=== PATIENT | male | born 1940 | race Caucasian/White ===

== ENCOUNTER → 2017-12-12 07:08 | Outpatient (CLI) | payer MEDICARE, OTHER, SELFPAY ==
[2017-12-12 10:40] LABS: AST(SGOT) 21 U/L (15-37); Alanine Aminotransfer ALT/SGPT 28 U/L (16-61); Albumin, Serum 3.7 g/dL (3.2-5.0); Alkaline Phosphatase 63 U/L (45-117); Bilirubin, Direct 0.19 mg/dL (0.00-0.30); Cholesterol 146 mg/dL (200); Globulin 3.7 g/dL (2.2-4.2); High Density Lipoprotein 40 mg/dL; Protein, Total 7.4 g/dL (6.4-8.2); Triglycerides 76 mg/dL; Very Low Density Lipoprotein 15 mg/dL (5-40)
== END ==
PROVIDERS: Internal Medicine Cardiovascular Disease; Family Provider Family Medicine; PCP Family Medicine; Visit Provider Family Medicine
DX: E78.00 Pure hypercholesterolemia, unspecified (principal); E78.5 Hyperlipidemia, unspecified; Z79.899 Other long term (current) drug therapy
CPT/HCPCS: 36415; 80061; 80076

== ENCOUNTER → 2018-07-19 07:02 | Outpatient (CLI) | payer MEDICARE, OTHER, SELFPAY ==
[2018-07-19 10:29] LABS: Color, Urine Yellow (Yellow); Glucose, Dipstick Normal (Normal); Ketone-Dipstick Negative (Negative); Leukocyte Esterase-Dipstick Negative /ul (Negative); Nitrite-Dipstick Negative (Negative); Occult Blood-Urine Negative /ul (Negative); Protein-Dipstick Negative (Negative); Urine Bilirubin Dipstick Negative (Negative); Urine Clarity Clear (Clear); Urine Urobilinogen Normal (Normal)
[2018-07-19 10:42] LABS: Absolute Lymphocyte Count 1.73 X10^3/ul (0.83-4.51); Absolute Neutrophil Count 4.5 X10^3/uL (2.0-7.7); Basophil# 0.03 X10^3/uL; Basophil% 0.4 % (0-1); Eosinophil# 0.22 X10^3/uL; Hematocrit 42.8 % (40-54); Hemoglobin 14.5 g/dl (13.0-16.5); Lymphocyte # 1.73 X10^3/ul (4.0); Lymphocyte % 23.8 % (19-41); Mean Corp Hgb Conc 33.9 g/gl (32-36); Mean Corpuscular Hgb 29.6 pg (27.0-32.0); Mean Corpuscular Volume 87.3 fL (80-94); Mean Platelet Vol. 10.1 fl (6.2-12.0); Monocyte# 0.75 X10^3/uL; Monocyte% 10.3 % (0-10); Neutrophil # 4.54 X10^3/uL (2.7-7.7); Neutrophil % 62.4 % (47-70); Platelet Count 147 K/mm3 (150-450); RBC Distribution Width CV 13.4 % (11.6-14.6); RBC Distribution Width SD 42.7 fl (35.1-43.9); White Blood Count 7.3 K/mm3 (4.4-11.0)
[2018-07-19 10:49] LABS: POSITIVE COUNT NO; POSITIVE DIFFERENTIAL NO; POSITIVE MORPHOLOGY NO
[2018-07-19 10:53] LABS: BUN 16 mg/dL (7-18); Creatinine, Serum 0.77 mg/dL (0.70-1.30); Glucose 98 mg/dL (74-106)
[2018-07-19 10:54] LABS: AST(SGOT) 21 U/L (15-37); Alanine Aminotransfer ALT/SGPT 38 U/L (16-61); Albumin, Serum 3.7 g/dL (3.2-5.0); Alkaline Phosphatase 68 U/L (45-117); Anion Gap 6 (5-15); BUN/Creat Ratio 20.8 RATIO (10-20); Bilirubin, Direct 0.19 mg/dL (0.00-0.30); Calcium,Total 8.9 mg/dL (8.5-10.1); Chloride 106 mmol/L (98-107); Cholesterol 167 mg/dL (200); EST Glomerular Filtration Rate 104 mL/min (>60); Est Glom Filt Rate - Afr Amer 126 mL/min (>60); Globulin 3.6 g/dL (2.2-4.2); High Density Lipoprotein 43 mg/dL; PSA,Total - Annual Screen 3.08 ng/mL (0.00-4.00); Potassium 3.5 mmol/L (3.5-5.1); Protein, Total 7.3 g/dL (6.4-8.2); Sodium Level 141 mmol/L (136-145); Triglycerides 94 mg/dL; Very Low Density Lipoprotein 19 mg/dL (5-40)
== END ==
PROVIDERS: Nurse Practitioner Family; Family Provider Family Medicine; PCP Family Medicine; Referring Provider Family Medicine; Visit Provider Family Medicine
DX: Z00.00 Encounter for general adult medical examination without abnormal findings (principal); E78.5 Hyperlipidemia, unspecified; I10 Essential (primary) hypertension; Z12.5 Encounter for screening for malignant neoplasm of prostate; N40.0 Benign prostatic hyperplasia without lower urinary tract symptoms
CPT/HCPCS: 80053; 80061; 81002; 82248; 84153; 85025; G0103

== ENCOUNTER → 2018-12-24 | Outpatient (CLI) | payer MEDICARE, OTHER, SELFPAY ==
[2018-12-17 14:33] VITALS: BMI 25.1
[2018-12-24 08:41] LABS: AST(SGOT) 25 U/L (15-37); Alanine Aminotransfer ALT/SGPT 34 U/L (16-61); Albumin, Serum 3.5 g/dL (3.2-5.0); Alkaline Phosphatase 60 U/L (45-117); Bilirubin, Direct 0.24 mg/dL (0.00-0.30); Cholesterol 143 mg/dL (200); Globulin 3.3 g/dL (2.2-4.2); High Density Lipoprotein 44 mg/dL; Protein, Total 6.8 g/dL (6.4-8.2); Triglycerides 61 mg/dL; Very Low Density Lipoprotein 12 mg/dL (5-40)
== END | disposition home or self-care (01) ==
LOC: LAB 07:07
PROVIDERS: Family Provider Family Medicine; PCP Family Medicine; Referring Provider Internal Medicine Cardiovascular Disease; Visit Provider Internal Medicine Cardiovascular Disease
DX: E78.5 Hyperlipidemia, unspecified (principal)
CPT/HCPCS: 36415; 80061; 80076

== ENCOUNTER → 2019-01-04 | Outpatient (CLI) | payer MEDICARE, OTHER, SELFPAY ==
[2018-12-17 14:33] VITALS: BMI 25.1
--- NOTE | 2019-01-04 13:03 | STEWCON_ITS ---
Reason For Study: Chest Pain; HTN Stress Results Protocol: José Antonio Protocol Maximum Predicted HR: 143 bpm Target HR: 122 bpm % Maximum Predicted HR: 95 % DurationHeart Rate Stage (mm:ss) (bpm) BP Comment Baseline 58 158/90No Chest Pain; Diluted Definity 3.5 ML Given José Antonio Protocol Stage I 3:00 100 170/88No Chest Pain José Antonio Protocol Stage II 3:00 107 188/84No Chest Pain José Antonio Protocol Stage III 3:00 120 190/80No Chest Pain; Mild Dyspnea José Antonio Protocol Stage IV 1:01 136 / No Chest Pain; Moderate Dyspnea Recovery 70 160/90No Chest Pain Stress Duration: 10:01 mm:ss Maximum Stress HR: 136 bpm METS: 13 Baseline Echocardiogram Findings The estimated ejection fraction is 65 %. Stress Echo Wall motion Data Resting WM Intermediate WM Stress WM Resting Wall Motion Wall Motion Stress No regional wall motion No regional wall motion abnormalities noted. abnormalities noted. EKG Data The baseline ECG displays normal sinus rhythm. The patient exercised according to the regular José Antonio protocol for a total duration of 10:01. The maximum heart rate attained was 137 beats per minute. This was 95% of maximum predicted heart rate. The patient exercised into stage 4 of the José Antonio protocol. During stress, there were no ST or T wave changes noted to suggest ischemia. No clinical angina was noted. Interpretation Summary The estimated ejection fraction is 65 %. Normal, adequate, treadmill echocardiogram. Negative for ischemia by EKG and echocardiographic criteria. No anginal symptoms noted. Rare PVCs noted. Hypertensive blood pressure response to exercise. Average exercise capacity for age. Decreased sensitivity due to poor echo windows requiring Definity agent. Test terminated due to dyspnea. Final LVEF is 75%. No complications. The study was technically difficult. Contrast injection was performed. Ordering Physician: Heriberto Washington Referring Physician: Barak Nichols Performed By: Alina Hodge, KOREYCS, RVT
== END | disposition home or self-care (01) ==
LOC: CVS 13:02
PROVIDERS: Family Provider Family Medicine; PCP Family Medicine; Referring Provider Internal Medicine Cardiovascular Disease; Visit Provider Internal Medicine Cardiovascular Disease
DX: R07.9 Chest pain, unspecified (principal); I10 Essential (primary) hypertension; E78.5 Hyperlipidemia, unspecified; I47.2 Ventricular tachycardia; I47.1 Supraventricular tachycardia
CPT/HCPCS: 93017; 93350; Q9957; A4216; C8928

== ENCOUNTER 2019-01-06 23:10 | Emergency (ER) | payer MEDICARE, OTHER, SELFPAY ==
[2019-01-06 23:11] VITALS: BP 216/104; PULSE 69; RESP 18; TEMP 36.2; O2SAT 98; BMI 24.6
[2019-01-06 23:20] VITALS: BP 194/86; PULSE 66; RESP 17; TEMP 36.7; O2SAT 96
--- NOTE | 2019-01-06 23:47 | ED.VISSUMM ---
- ER Visit Summary Date of Service: 01/06/19 Chief Complaint: High blood pressure History of Present Illness: The patient is a [address] Cummings and Dr. Nichols. He reports that he typically has a blood pressure of 140/80. States that approximately 3 to 4 weeks ago he stopped taking his isosorbide. His blood pressure became elevated following that. States that approximately 2 weeks ago he was placed on 3.125 mg of carvedilol twice daily. His last dose was at 6 PM. States that he is also on quinapril 20 mg twice daily and his last dose of this was at 6 PM. He is on 12.5 mg of hydrochlorothiazide. He has not missed this. Patient reports that he measured his blood pressure tonight and it was 190/90. He readily admits that he became anxious and repeated again and it was 200/100. He repeated a third time and it was 210/120. States that he became very anxious and this was in a 30-minute timeframe. He denies any other complaints. No chest pain shortness of breath. No headache, numbness, weakness, change in his vision, or other neurologic complaints. Physical Examination: Vitals: 97.2, 216/104, 69, 18, 98% on room air which is not hypoxic General: Well-nourished and well-developed. Head: Normocephalic atraumatic. Neck: Supple, no lymphadenopathy. No JVD. Nontender. Cardiovascular: Regular rate and rhythm. No murmurs. Respiratory: No respiratory distress. Clear to auscultation bilaterally. Abdominal: Soft, nontender, nondistended, normal bowel sounds. No guarding, rebound, or peritoneal signs. Back: Nontender. Extremities: Nontender, no edema. Skin: Normal color, no rash. Neurologic: Alert and oriented ?3. Cranial nerves II through XII are intact. Normal strength and sensation. Psych: Normal affect. Emergency Department Course and Treatment: I had a prolonged discussion with patient about the likelihood that anxiety is partially responsible for his increase in his blood pressure was each of these readings. As he has been sitting here and we are talking his blood pressure is 187/86. I did offer to do an EKG, blood work, and a CT. However, he is asymptomatic and I do not feel that these are necessarily required. Treatment Plan: The patient feels better after being reassured. He does not want any evaluation undertaken. He will be discharged with instructions to speak with Dr. Cummings tomorrow about his blood pressures and see if he wants to increase his dose of any of his antihypertensives. Return to the emergency department for any worsening symptoms. Disposition: To home in improved and stable condition. Impression: 1. Asymptomatic hypertension. This note was generated with [employer] dictation software. It may contain incorrect words, spelling, and punctuation that were not noted in review of the chart prior to signing ED Disposition - Plan for ED Patient: Disposition: Home or Assisted Living Instructions: ED HTN Established Referrals: Heriberto Cummings MD [STAFF PHYSICIAN] - Barak Nichols MD [Primary Care Provider] - Keep Oscar appointment Additional Instructions: Call Dr. cummings tomorrow and talk with him about your blood pressures and see if he wants to adjust your medications.
[2019-01-06 23:52] VITALS: BP 179/89; PULSE 85; RESP 14; O2SAT 98
== END 2019-01-06 23:53 | disposition home or self-care (01) ==
LOC: ED 23:51
PROVIDERS: Emergency Provider Emergency Medicine; Family Provider Family Medicine; PCP Family Medicine
DX: I10 Essential (primary) hypertension (principal); E78.00 Pure hypercholesterolemia, unspecified; Z79.82 Long term (current) use of aspirin; Z79.899 Other long term (current) drug therapy
CPT/HCPCS: 99282

== ENCOUNTER → 2019-07-22 06:53 | Outpatient (CLI) | payer MEDICARE, OTHER, SELFPAY ==
[2019-07-01 14:27] VITALS: BMI 23.0
[2019-07-22 07:34] LABS: Color, Urine Yellow (Yellow); Glucose, Dipstick Normal (Normal); Ketone-Dipstick Negative (Negative); Leukocyte Esterase-Dipstick Negative /ul (Negative); Nitrite-Dipstick Negative (Negative); Occult Blood-Urine Negative /ul (Negative); Protein-Dipstick Negative (Negative); Specific Gravity, Urine 1.015 (1.002-1.030); Urine Bilirubin Dipstick Negative (Negative); Urine Clarity Clear (Clear); Urine Urobilinogen Normal (Normal)
[2019-07-22 07:37] LABS: Absolute Lymphocyte Count 1.36 X10^3/uL (0.83-4.51); Absolute Neutrophil Count 3.8 X10^3/uL (2.0-7.7); Basophil# 0.03 X10^3/uL; Basophil% 0.5 % (0-1); Eosinophil# 0.22 X10^3/uL; Eosinophils% 3.6 % (0-5); Hematocrit 41.1 % (40-54); Hemoglobin 13.9 g/dL (13.0-16.5); Lymphocyte # 1.36 X10^3/ul (4.0); Lymphocyte % 22.2 % (19-41); Mean Corp Hgb Conc 33.8 g/dL (32-36); Mean Corpuscular Hgb 30.2 pg (27.0-32.0); Mean Corpuscular Volume 89.2 fL (80-94); Mean Platelet Vol. 9.8 fl (6.2-12.0); Monocyte# 0.71 X10^3/uL; Monocyte% 11.6 % (0-10); NRBC Flagged by Analyzer 0 % (0-5); Neutrophil % 61.9 % (47-70); Platelet Count 141 K/mm3 (150-450); RBC Distribution Width SD 42.5 fl (35.1-43.9); Red Blood Count 4.61 M/mm3 (4.6-6.2); White Blood Count 6.1 K/mm3 (4.4-11.0)
[2019-07-22 08:09] LABS: ALB/GLOB Ratio 1.2 RATIO (0.9-2.4); AST(SGOT) 19 U/L (15-37); Alanine Aminotransfer ALT/SGPT 31 U/L (16-61); Albumin, Serum 3.7 g/dL (3.2-5.0); Alkaline Phosphatase 59 U/L (45-117); Anion Gap 3 (5-15); BUN 17 mg/dL (7-18); BUN/Creat Ratio 20.7 RATIO (10-20); Bilirubin, Direct 0.21 mg/dL (0.00-0.30); Calcium,Total 8.8 mg/dL (8.5-10.1); Chloride 106 mmol/L (98-107); Cholesterol 161 mg/dL (200); Creatinine, Serum 0.82 mg/dL (0.70-1.30); EST Glomerular Filtration Rate 96 mL/min (>60); Est Glom Filt Rate - Afr Amer 116 mL/min (>60); Globulin 3.2 g/dL (2.2-4.2); Glucose 102 mg/dL (74-106); High Density Lipoprotein 43 mg/dL; PSA,Total - Annual Screen 2.92 ng/mL (0.00-4.00); Potassium 3.7 mmol/L (3.5-5.1); Protein, Total 6.9 g/dL (6.4-8.2); Sodium Level 141 mmol/L (136-145); Triglycerides 85 mg/dL; Very Low Density Lipoprotein 17 mg/dL (5-40)
== END ==
PROVIDERS: Family Provider Family Medicine; PCP Family Medicine; Referring Provider Internal Medicine Cardiovascular Disease; Visit Provider Internal Medicine Cardiovascular Disease
DX: Z00.00 Encounter for general adult medical examination without abnormal findings (principal); E78.5 Hyperlipidemia, unspecified; I10 Essential (primary) hypertension; Z12.5 Encounter for screening for malignant neoplasm of prostate
CPT/HCPCS: 80053; 80061; 81002; 82248; 84153; 85025; G0103

== ENCOUNTER → 2020-04-15 07:46 | Outpatient (CLI) | payer MEDICARE, OTHER, SELFPAY ==
[2020-01-23 11:24] VITALS: BMI 23.9
[2020-04-15 10:41] LABS: AST(SGOT) 18 U/L (15-37); Alanine Aminotransfer ALT/SGPT 26 U/L (16-61); Albumin, Serum 3.6 g/dL (3.2-5.0); Alkaline Phosphatase 61 U/L (45-117); Bilirubin, Direct 0.19 mg/dL (0.00-0.30); Cholesterol 190 mg/dL (200); Globulin 3.4 g/dL (2.2-4.2); High Density Lipoprotein 43 mg/dL; Triglycerides 83 mg/dL; Very Low Density Lipoprotein 17 mg/dL (5-40)
== END ==
PROVIDERS: PCP Family Medicine; Referring Provider Family Medicine; Visit Provider Family Medicine
DX: E78.5 Hyperlipidemia, unspecified (principal)
CPT/HCPCS: 36415; 80061; 80076

== ENCOUNTER → 2020-07-24 07:19 | Outpatient (CLI) | payer MEDICARE, OTHER, SELFPAY ==
[2020-07-20 14:01] VITALS: BMI 23.0
[2020-07-24 10:06] LABS: Absolute Lymphocyte Count 1.24 X10^3/uL (0.83-4.51); Absolute Neutrophil Count 3.1 X10^3/uL (2.0-7.7); Basophil# 0.02 X10^3/uL; Basophil% 0.4 % (0-1); Eosinophil# 0.15 X10^3/uL; Eosinophils% 2.9 % (0-5); Hematocrit 41.5 % (40-54); Hemoglobin 14.1 g/dL (13.0-16.5); Lymphocyte # 1.24 X10^3/ul (4.0); Lymphocyte % 24.3 % (19-41); Mean Corpuscular Hgb 30.3 pg (27.0-32.0); Mean Corpuscular Volume 89.2 fL (80-94); Mean Platelet Vol. 10.5 fl (6.2-12.0); Monocyte# 0.56 X10^3/uL; NRBC Flagged by Analyzer 0 % (0-5); Neutrophil # 3.12 X10^3/uL (2.7-7.7); Platelet Count 148 K/mm3 (150-450); RBC Distribution Width CV 13.2 % (11.6-14.6); RBC Distribution Width SD 42.7 fl (35.1-43.9); Red Blood Count 4.65 M/mm3 (4.6-6.2); White Blood Count 5.1 K/mm3 (4.4-11.0)
[2020-07-24 10:54] LABS: ALB/GLOB Ratio 1.1 RATIO (0.9-2.4); AST(SGOT) 17 U/L (15-37); Alanine Aminotransfer ALT/SGPT 25 U/L (16-61); Albumin, Serum 3.6 g/dL (3.2-5.0); Alkaline Phosphatase 60 U/L (45-117); Anion Gap 6 (5-15); BUN 20 mg/dL (7-18); BUN/Creat Ratio 27.1 RATIO (10-20); Chloride 108 mmol/L (98-107); Cholesterol 176 mg/dL (200); Creatinine, Serum 0.74 mg/dL (0.70-1.30); EST Glomerular Filtration Rate 109 mL/min (>60); Est Glom Filt Rate - Afr Amer 132 mL/min (>60); Globulin 3.2 g/dL (2.2-4.2); Glucose 87 mg/dL (74-106); High Density Lipoprotein 47 mg/dL; PSA,Total - Annual Screen 3.14 ng/mL (0.00-4.00); Potassium 3.6 mmol/L (3.5-5.1); Protein, Total 6.8 g/dL (6.4-8.2); Sodium Level 143 mmol/L (136-145); Triglycerides 46 mg/dL; Very Low Density Lipoprotein 9 mg/dL (5-40)
== END ==
PROVIDERS: PCP Family Medicine; Referring Provider Family Medicine; Visit Provider Family Medicine
DX: Z00.00 Encounter for general adult medical examination without abnormal findings (principal); E78.5 Hyperlipidemia, unspecified; I10 Essential (primary) hypertension; Z12.5 Encounter for screening for malignant neoplasm of prostate
CPT/HCPCS: 36415; 80053; 80061; 84153; 85025; G0103

== ENCOUNTER → 2021-02-05 11:04 | Outpatient (CLI) | payer MEDICARE, SELFPAY ==
[2020-08-13 15:26] VITALS: BMI 23.1
[2021-02-05 12:49] LABS: ALB/GLOB Ratio 1.1 RATIO (0.9-2.4); AST(SGOT) 19 U/L (15-37); Alanine Aminotransfer ALT/SGPT 30 U/L (16-61); Albumin, Serum 3.6 g/dL (3.2-5.0); Alkaline Phosphatase 70 U/L (45-117); Anion Gap 5 (5-15); BUN 16 mg/dL (7-18); BUN/Creat Ratio 23.5 RATIO (10-20); Calcium,Total 8.8 mg/dL (8.5-10.1); Chloride 106 mmol/L (98-107); Creatinine, Serum 0.68 mg/dL (0.70-1.30); EST Glomerular Filtration Rate 119 mL/min (>60); Est Glom Filt Rate - Afr Amer 144 mL/min (>60); Globulin 3.2 g/dL (2.2-4.2); Glucose 89 mg/dL (74-106); Potassium 3.4 mmol/L (3.5-5.1); Protein, Total 6.8 g/dL (6.4-8.2); Sodium Level 142 mmol/L (136-145)
== END ==
PROVIDERS: PCP Family Medicine; Referring Provider Family Medicine; Visit Provider Family Medicine
DX: I10 Essential (primary) hypertension (principal); E78.5 Hyperlipidemia, unspecified
CPT/HCPCS: 36415; 80053

== ENCOUNTER → 2021-07-27 07:08 | Outpatient (CLI) | payer MEDICARE, SELFPAY ==
[2021-07-27 09:55] LABS: Absolute Lymphocyte Count 1.29 X10^3/uL (0.83-4.51); Absolute Neutrophil Count 4.2 X10^3/uL (2.0-7.7); Basophil# 0.04 X10^3/uL; Basophil% 0.6 % (0-1); Eosinophil# 0.19 X10^3/uL; Hematocrit 40.6 % (40-54); Hemoglobin 13.7 g/dL (13.0-16.5); Lymphocyte # 1.29 X10^3/ul (0.83-4.51); Lymphocyte % 20.3 % (19-41); Mean Corp Hgb Conc 33.7 g/dL (32-36); Mean Corpuscular Hgb 29.4 pg (27.0-32.0); Mean Corpuscular Volume 87.1 fL (80-94); Monocyte# 0.56 X10^3/uL; Monocyte% 8.8 % (0-10); NRBC Flagged by Analyzer 0 % (0-5); Neutrophil # 4.24 X10^3/uL (2.7-7.7); Platelet Count 161 K/mm3 (150-450); RBC Distribution Width CV 13.4 % (11.6-14.6); RBC Distribution Width SD 42.6 fl (35.1-43.9); Red Blood Count 4.66 M/mm3 (4.6-6.2); White Blood Count 6.3 K/mm3 (4.4-11.0)
[2021-07-27 10:29] LABS: ALB/GLOB Ratio 0.9 RATIO (0.9-2.4); AST(SGOT) 16 U/L (15-37); Alanine Aminotransfer ALT/SGPT 30 U/L (16-61); Albumin, Serum 3.3 g/dL (3.2-5.0); Alkaline Phosphatase 59 U/L (45-117); Anion Gap 8 (5-15); BUN 16 mg/dL (7-18); BUN/Creat Ratio 24.4 RATIO (10-20); Calcium,Total 8.8 mg/dL (8.5-10.1); Chloride 105 mmol/L (98-107); Cholesterol 169 mg/dL (200); Creatinine, Serum 0.66 mg/dL (0.70-1.30); EST Glomerular Filtration Rate 125 mL/min (>60); Est Glom Filt Rate - Afr Amer 151 mL/min (>60); Globulin 3.7 g/dL (2.2-4.2); Glucose 95 mg/dL (74-106); High Density Lipoprotein 41 mg/dL; PSA,Total - Annual Screen 3.74 ng/mL (0.00-4.00); Potassium 3.3 mmol/L (3.5-5.1); Sodium Level 143 mmol/L (136-145); Triglycerides 85 mg/dL; Very Low Density Lipoprotein 17 mg/dL (5-40)
== END ==
PROVIDERS: PCP Family Medicine; Referring Provider Family Medicine; Visit Provider Family Medicine
DX: Z00.00 Encounter for general adult medical examination without abnormal findings (principal); E78.5 Hyperlipidemia, unspecified; I10 Essential (primary) hypertension; Z12.5 Encounter for screening for malignant neoplasm of prostate
CPT/HCPCS: 36415; 80053; 80061; 84153; 85025; G0103

== ENCOUNTER → 2022-06-10 | Outpatient (CLI) | payer MEDICARE, SELFPAY | END | disposition home or self-care (01) | LOC: PSN 11:57 | PROVIDERS: PCP Family Medicine; Referring Provider Nurse Practitioner Gerontology; Visit Provider Nurse Practitioner Gerontology | DX: R00.2 Palpitations (principal); R55 Syncope and collapse | CPT/HCPCS: 93225; 93226 ==

== ENCOUNTER → 2022-08-09 | Outpatient (CLI) | payer MEDICARE, SELFPAY ==
[2022-08-09 14:52] LABS: Absolute Lymphocyte Count 1.65 X10^3/uL (0.83-4.51); Basophil# 0.04 X10^3/uL; Basophil% 0.5 % (0-1); Eosinophil# 0.21 X10^3/uL; Eosinophils% 2.8 % (0-5); Hematocrit 40.4 % (40-54); Hemoglobin 13.9 g/dL (13.0-16.5); Lymphocyte # 1.65 X10^3/ul (0.83-4.51); Lymphocyte % 21.7 % (19-41); Mean Corp Hgb Conc 34.4 g/dL (32-36); Mean Corpuscular Hgb 29.7 pg (27.0-32.0); Mean Corpuscular Volume 86.3 fL (80-94); Mean Platelet Vol. 10.2 fl (6.2-12.0); Monocyte# 0.72 X10^3/uL; Monocyte% 9.4 % (0-10); NRBC Flagged by Analyzer 0 % (0-5); Neutrophil # 4.97 X10^3/uL (2.7-7.7); Neutrophil % 65.2 % (47-70); Platelet Count 156 K/mm3 (150-450); RBC Distribution Width CV 12.9 % (11.6-14.6); RBC Distribution Width SD 40.1 fl (35.1-43.9); Red Blood Count 4.68 M/mm3 (4.6-6.2); White Blood Count 7.6 K/mm3 (4.4-11.0)
[2022-08-09 15:04] LABS: ALB/GLOB Ratio 1.2 RATIO (0.9-2.4); AST(SGOT) 21 U/L (15-37); Alanine Aminotransfer ALT/SGPT 37 U/L (16-61); Albumin, Serum 3.9 g/dL (3.2-5.0); Alkaline Phosphatase 55 U/L (45-117); Anion Gap 5 (5-15); BUN 17 mg/dL (7-18); BUN/Creat Ratio 20.9 RATIO (10-20); Calcium,Total 9.4 mg/dL (8.5-10.1); Chloride 106 mmol/L (98-107); Cholesterol 206 mg/dL (200); Creatinine, Serum 0.81 mg/dL (0.70-1.30); EST Glomerular Filtration Rate 97 mL/min (>60); Est Glom Filt Rate - Afr Amer 117 mL/min (>60); Globulin 3.3 g/dL (2.2-4.2); Glucose 118 mg/dL (74-106); High Density Lipoprotein 44 mg/dL; Potassium 3.7 mmol/L (3.5-5.1); Protein, Total 7.2 g/dL (6.4-8.2); Sodium Level 142 mmol/L (136-145); Triglycerides 146 mg/dL; Very Low Density Lipoprotein 29 mg/dL (5-40)
== END | disposition home or self-care (01) ==
LOC: BFHLAB 13:38
PROVIDERS: PCP Family Medicine; Visit Provider Family Medicine
DX: I10 Essential (primary) hypertension (principal)
CPT/HCPCS: 36415; 80053; 80061; 85025

== ENCOUNTER 2022-11-07 16:44 | Emergency (ER) | payer MEDICARE, SELFPAY ==
[2022-11-07 16:45] VITALS: BP 202/87; PULSE 66; RESP 18; TEMP 36.1; O2SAT 99; BMI 23.8
--- NOTE | 2022-11-07 19:09 | EDS_ITS ---
HPI History of Present Illness Chief Complaint: Laceration Narrative Narrative: 82-year-old male presenting with wound on the left middle finger. Patient states he was trying to do something to his lawnmower and make it to be able to hold more weight to the advertently pinched his finger and its been bleeding since then. Patient not on any blood thinners. He is try direct pressure. [facility] Medical History BPH (benign prostatic hyperplasia) Cataract (lens) fragments in eye following cataract surgery, right eye COVID-19 (~04/2021) Essential hypertension Frequent unifocal PVCs Hyperlipidemia Paroxysmal supraventricular tachycardia Paroxysmal ventricular tachycardia Home Medications aspirin 81 mg tablet,delayed release (Adult Aspirin Regimen) 81 mg PO QDAY 12/24/17 [History Last Taken Unknown] cranberry 500 mg capsule 500 mg PO BID 12/24/17 [History Last Taken Unknown] multivitamin 1 tab PO QDAY 12/24/17 [History Last Taken Unknown] cyanocobalamin (vitamin B-12) 1,000 mcg tablet (Vitamin B-12) 1,000 mcg PO QDAY 12/25/17 [History Last Taken Unknown] tamsulosin 0.4 mg capsule 0.4 mg PO DAILY 05/31/18 [History Last Taken Unknown] potassium chloride 10 mEq tablet,extended release 10 meq PO DAILY #90 tabs 06/17/20 [Rx Last Taken Unknown] carvedilol 6.25 mg tablet 6.25 mg PO BID #180 tabs 01/31/22 [Rx Last Taken Unknown] hydrochlorothiazide 25 mg tablet 25 mg PO DAILY #90 tabs 01/31/22 [Rx Last Taken Unknown] doxazosin 2 mg tablet (Cardura) 2 mg PO QHS #90 tabs 09/09/22 [Rx Last Taken Unknown] lisinopril 20 mg tablet 20 mg PO BID 09/09/22 [History Last Taken Unknown] Allergy/AdvReac Type Severity Reaction Status Date / Time hydralazine AdvReac Severe Peripheral Verified 11/07/22 16:45 Neuritis (numb and pain hands and feet) isosorbide AdvReac Severe Severe Verified 11/07/22 16:45 headache Family History Father CAD (coronary artery disease) Mother CAD (coronary artery disease) CABG CVA (cerebral vascular accident) Diabetes Surgical History History of appendectomy Social History Smoking Status: Never smoker how long ago did patient quit smokin years ago alcohol intake: never caffeine: Yes (1) Type: coffee ROS ROS ED Constitutional Constitutional ED: Denies chills, fever(s) or sweats Eyes Eyes: Denies blurry vision or change in vision ENT ENT ED: Denies ear pain or sore throat Cardiovascular Cardiovascular: Denies chest pain, palpitations or racing heartbeat Respiratory/Chest Respiratory/Chest: Denies cough, dyspnea or sputum Gastrointestinal Gastrointestinal: Denies abdominal pain, constipation, diarrhea, nausea or vomiting Genitourinary Genitourinary ED: Denies dysuria, hematuria or urinary frequency Musculoskeletal Musculoskeletal: Denies arthralgias, myalgias or neck pain Integumentary Reports other Details: Wound to left middle finger ; Denies abscess, Abrasions or rash Neurologic Neurologic: Denies headache(s), paresthesias or weakness Psychiatric Psychiatric: Denies anxiety, depression, suicidal ideation or suicidal thoughts Endocrine Endocrinology: Denies polydipsia or polyuria EXAM Physical Exam Const Vital Signs: 11/07/22 16:45 Temperature 97 F L Temperature Source Temporal Pulse Rate 66 Respiratory Rate 18 Blood Pressure 202/87 H Blood Pressure Mean 125 Pulse Ox 99 Oxygen Delivery Method Room Air Positive well nourished General Appearance ED: NAD HEENT normocephalic Eyes PERRL and EOMs intact bilaterally Resp normal respiratory effort Neuro oriented x3 and CN's II-XII intact bilaterally Sensorium / Orientation: alert Psych mental status grossly normal Skin Skin Narrative: Macerated wound to the lateral aspect of the left middle finger. No bony involvement. No tendon involvement. Oozing blood. MDM MDM MDM Narrative Medical decision making narrative: Patient avulsed the skin on the side of his left middle finger. Amenable for suturing. Patient is on any blood thinners. Compression dressing was placed on the patient's wound. We will monitor to make sure it does not rebleed. Counseled that he will likely need to keep this clean and dry and use pressure if it does rebleed. Pressure dressing rechecked at 7:55 PM. No current bleeding. Patient's tetanus is updated. He is counseled on wound care. Return precautions discussed. Impression: 1. Skin avulsion left middle finger Discharge Plan Triage Chief Complaint: Laceration ED Provider: Calixto Hunt Dx/Rx/DC Orders Prescriptions: No Action cyanocobalamin (vitamin B-12) [Vitamin B-12] 1,000 mcg tablet 1,000 mcg PO QDAY multivitamin tablet 1 tab PO QDAY cranberry 500 mg capsule 500 mg PO BID aspirin [Adult Aspirin Regimen] 81 mg tablet,delayed release (DR/EC) 81 mg PO QDAY lisinopril 20 mg tablet 20 mg PO BID doxazosin [Cardura] 2 mg tablet 2 mg PO QHS Qty: 90 3RF tamsulosin 0.4 mg capsule 0.4 mg PO DAILY Label Comments: urinary urgency potassium chloride 10 mEq tablet extended release 10 meq PO DAILY Qty: 90 3RF carvedilol 6.25 mg tablet 6.25 mg PO BID Qty: 180 3RF Rx Instructions: must administer with a meal/food hydrochlorothiazide 25 mg tablet 25 mg PO DAILY Qty: 90 3RF Primary Care Provider: Pete Ferreira Referrals: Pete Ferreira DO [Primary Care Provider] -
[2022-11-07] MEDS: Diphth,Pertuss(Acell),Tet Vac 0.5 ML Vial IM (20:05)
[2022-11-07 20:28] VITALS: BP 161/78; PULSE 79; RESP 16
== END 2022-11-07 20:29 | disposition home or self-care (01) ==
PROVIDERS: Emergency Provider Student in an Organized Health Care Education/Training Program; PCP Family Medicine; Visit Provider Student in an Organized Health Care Education/Training Program
DX: S61.203A Unspecified open wound of left middle finger without damage to nail, initial encounter (principal); I10 Essential (primary) hypertension; W28.XXXA Contact with powered lawn mower, initial encounter; Z79.82 Long term (current) use of aspirin; Z79.899 Other long term (current) drug therapy; N40.0 Benign prostatic hyperplasia without lower urinary tract symptoms; Z23 Encounter for immunization
CPT/HCPCS: 90471; 90715; 99282; A4216

== ENCOUNTER → 2023-09-12 | Outpatient (CLI) | payer MEDICARE, SELFPAY ==
[2023-09-12 12:15] LABS: Absolute Lymphocyte Count 1.12 X10^3/uL (0.83-4.51); Absolute Neutrophil Count 7.6 X10^3/uL (2.0-7.7); Basophil# 0.04 X10^3/uL; Basophil% 0.4 % (0-1); Eosinophil# 0.14 X10^3/uL; Eosinophils% 1.4 % (0-5); Hematocrit 39.3 % (40-54); Hemoglobin 13.1 g/dL (13.0-16.5); Lymphocyte # 1.12 X10^3/ul (0.83-4.51); Lymphocyte % 11.2 % (19-41); Mean Corp Hgb Conc 33.3 g/dL (32-36); Mean Corpuscular Hgb 29.4 pg (27.0-32.0); Mean Corpuscular Volume 88.3 fL (80-94); Mean Platelet Vol. 10.3 fl (6.2-12.0); Monocyte# 0.98 X10^3/uL; Monocyte% 9.8 % (0-10); NRBC Flagged by Analyzer 0 % (0-5); Neutrophil # 7.64 X10^3/uL (2.7-7.7); Neutrophil % 76.7 % (47-70); Platelet Count 150 K/mm3 (150-450); RBC Distribution Width CV 13.3 % (11.6-14.6); Red Blood Count 4.45 M/mm3 (4.6-6.2)
[2023-09-12 13:39] LABS: ALB/GLOB Ratio 1.1 RATIO (0.9-2.4); AST(SGOT) 16 U/L (15-37); Alanine Aminotransfer ALT/SGPT 29 U/L (16-61); Albumin, Serum 3.6 g/dL (3.2-5.0); Alkaline Phosphatase 57 U/L (45-117); Anion Gap 3 (5-15); BUN 14 mg/dL (7-18); BUN/Creat Ratio 20.9 RATIO (10-20); Calcium,Total 9.3 mg/dL (8.5-10.1); Chloride 106 mmol/L (98-107); Cholesterol 185 mg/dL (200); Creatinine, Serum 0.67 mg/dL (0.70-1.30); EST Glomerular Filtration Rate 121 mL/min (>60); Est Glom Filt Rate - Afr Amer 146 mL/min (>60); Globulin 3.3 g/dL (2.2-4.2); Glucose 100 mg/dL (74-106); High Density Lipoprotein 43 mg/dL; Potassium 3.9 mmol/L (3.5-5.1); Protein, Total 6.9 g/dL (6.4-8.2); Sodium Level 138 mmol/L (136-145); Triglycerides 120 mg/dL; Very Low Density Lipoprotein 24 mg/dL (5-40)
== END | disposition home or self-care (01) ==
LOC: BFHLAB 10:37
PROVIDERS: PCP Family Medicine; Visit Provider Family Medicine
DX: I10 Essential (primary) hypertension (principal); E78.5 Hyperlipidemia, unspecified
CPT/HCPCS: 36415; 80053; 80061; 85025

== ENCOUNTER → 2023-11-14 | Outpatient (CLI) | payer MEDICARE, SELFPAY | END | disposition home or self-care (01) | LOC: PSN 09:03 | PROVIDERS: PCP Family Medicine; Referring Provider Family Medicine; Visit Provider Family Medicine | DX: I48.91 Unspecified atrial fibrillation (principal) | CPT/HCPCS: 93225; 93226 ==

== ENCOUNTER → 2023-12-29 | Outpatient (CLI) | payer MEDICARE, SELFPAY ==
--- NOTE | 2023-12-29 06:44 | ECHOD_ITS ---
Reason For Study: Abnormal EKG Procedure This was a 2D Doppler, Color Flow transthoracic echocardiogram. Exam performed in department. Left Ventricle Normal LV size. The estimated ejection fraction is 65 %. Unable to assess diastolic dysfunction. No regional wall motion abnormalities noted. Right Ventricle Normal RV size. Normal systolic function. Atria The left atrium is mildly enlarged. Normal right atrium. No doppler evidence for ASD. Mitral Valve There is moderate mitral annular calcification. There is no mitral valve stenosis. No mitral valve insufficiency. Tricuspid Valve There is no tricuspid stenosis. Trivial tricuspid valve insufficiency. Pulmonary artery systolic pressure is 35 mmHg. Aortic Valve Trisinus/trileaflet aortic valve. Aortic sclerosis, no stenosis. There is no aortic stenosis. No aortic valve insufficiency. Pulmonic Valve There is no pulmonic valvular stenosis. No pulmonic valve insufficiency. Great Vessels Normal aortic root. Pericardium/Pleural No pericardial effusion. MMode/2D Measurements & Calculations LVIDd: 5.0 cm IVSd: 0.83 cm Ao root diam: 3.4 cm LVIDs: 3.2 cm LVPWd: 1.1 cm LA dimension: 4.1 cm RVDd: 4.1 cm FS: 35.8 % LAV(MOD-bp): 73.1 ml LA A4 area: 22.6 cm2 RA A4 area: 21.8 cm2 LAV(MOD-bp) Indexed: 39.1 ml/m2 LAV(MOD-sp2): 67.4 ml LAV(MOD-sp4): 67.7 ml TAPSE: 1.9 cm Time Measurements MV dec time: 0.30 sec Doppler Measurements & Calculations MV E max benoit: 57.3 cm/sec Lat Peak E' Benoit: 4.4 cm/sec Med Peak E' Benoit: 7.6 cm/sec MV A max benoit: 91.6 cm/sec E/E' lat: 13.1 E/E' med: 7.5 MV E/A: 0.63 MV V2 max: 103.0 cm/sec MV P1/2t max benoit: 75.5 cm/sec Ao V2 max: 127.7 cm/sec MV max P.2 mmHg MV P1/2t: 106.5 msec Ao max P.6 mmHg MV V2 mean: 46.7 cm/sec Ao V2 mean: 82.7 cm/sec MV mean P.1 mmHg MV dec slope: 207.7 cm/sec2 Ao mean P.2 mmHg MV V2 VTI: 30.0 cm MVA(P1/2t): 2.1 cm2 Ao V2 VTI: 26.6 cm AV (velocity ratio): 1.0 LV V1 max: 121.1 cm/sec MR max benoit: 497.9 cm/sec PA V2 max: 111.5 cm/sec LV V1 max P.9 mmHg MR max P.2 mmHg PA V2 mean: 77.6 cm/sec LV V1 mean P.6 mmHg LV V1 mean: 73.6 cm/sec LV V1 VTI: 27.9 cm TR max benoit: 266.7 cm/sec TR max P.5 mmHg ECHO/Echo Complete Interpretation Summary The estimated ejection fraction is 65 %. Unable to assess diastolic dysfunction. The left atrium is mildly enlarged. Ordering Physician: Adina Esquivel Referring Physician: Pete Ferreira Performed By: David Smart RCS
--- NOTE | 2024-01-02 10:50 | STRESSREP ---
Stress Test Report Date: 12/29/2023 Procedure: Exercise tolerance test/imaging study Indications: Paroxysmal atrial fibrillation Consent: Per the patient Procedure: The patient exercised on a José Antonio protocol for 9 minutes achieving a peak heart rate of 146 bpm (105% predicted maximal heart rate) with a peak blood pressure 190/72 mmHg and a peak MET capacity of 10.1 METs. The baseline ECG demonstrated normal sinus rhythm. The peak exercise ECG demonstrated sinus tachycardia with no significant ischemic changes. EKG during recovery revealed no significant ischemic changes [There were no significant cardiac dysrhythmias pretest, during exercise, or recovery]. The functional capacity was considered excellent for age. There was [no complaint of chest discomfort during exercise or recovery]. The examination was discontinued secondary to achieving target heart rate. Impression: 1. Technically adequate (percent predicted maximal heart rate greater than 85%) exercise tolerance test 2. Stress test is negative for exercise-induced EKG changes of ischemia 3. The test test is negative for exercise-induced chest pain 4. Functional capacity is excellent for age 5. Nuclear images pending Myocardial perfusion imaging study: Technique: The patient was injected with 11.8 mCi of technetium 99m Cardiolite and subsequently rest SPECT Cardiolite nuclear imaging was obtained in the horizontal long, vertical long, and short axis views. The patient exercised on a José Antonio protocol. Please see above for details. The patient was injected with 33.3 mCi of technetium 99m Cardiolite and subsequently stress SPECT Cardiolite nuclear imaging was obtained in the horizontal long, vertical long, and short axis views. A gated Cardiolite study at peak stress was obtained. Interpretation: Rest and stress SPECT Cardiolite nuclear imaging status post realignment, normalization, and attenuation correction, demonstrates no evidence of significant ischemia or infarction. The gated Cardiolite study demonstrates no significant regional wall motion abnormalities. The reported LVEF is greater than 70%. Impression: 1. There is no evidence of significant ischemia or infarction. 2. The gated Cardiolite study reports an LVEF of greater than 70%. This note was generated with [employer] software. It may contain incorrect words, spelling, and punctuation that were not noted in checking the note before signing.
== END | disposition home or self-care (01) ==
LOC: CVS 06:43
PROVIDERS: PCP Family Medicine; Referring Provider Physician Assistant Medical; Visit Provider Physician Assistant Medical
DX: I47.10 Supraventricular tachycardia, unspecified (principal); I48.0 Paroxysmal atrial fibrillation; I10 Essential (primary) hypertension; R94.31 Abnormal electrocardiogram [ECG] [EKG]
CPT/HCPCS: 78452; 93017; 93306; A9500; A4216

== ENCOUNTER → 2024-07-01 | Outpatient (CLI) | payer MEDICARE, SELFPAY | END | disposition home or self-care (01) | LOC: PSN 08:33 | PROVIDERS: PCP Family Medicine; Referring Provider Internal Medicine Cardiovascular Disease; Visit Provider Internal Medicine Cardiovascular Disease | DX: I48.0 Paroxysmal atrial fibrillation (principal) | CPT/HCPCS: 93225; 93226 ==

== ENCOUNTER → 2024-10-04 | Outpatient (CLI) | payer MEDICARE, SELFPAY ==
[2024-10-04 15:37] LABS: Absolute Lymphocyte Count 1.47 X10^3/uL (0.83-4.51); Absolute Neutrophil Count 4.2 X10^3/uL (2.0-7.7); Basophil# 0.04 X10^3/uL; Basophil% 0.6 % (0-1); Eosinophil# 0.21 X10^3/uL; Eosinophils% 3.2 % (0-5); Hematocrit 38.7 % (40-54); Hemoglobin 13.3 g/dL (13.0-16.5); Lymphocyte # 1.47 X10^3/ul (0.83-4.51); Lymphocyte % 22.3 % (19-41); Mean Corp Hgb Conc 34.4 g/dL (32-36); Mean Corpuscular Volume 87.4 fL (80-94); Mean Platelet Vol. 10.2 fl (6.2-12.0); Monocyte# 0.66 X10^3/uL; NRBC Flagged by Analyzer 0 % (0-5); Neutrophil # 4.18 X10^3/uL (2.7-7.7); Neutrophil % 63.6 % (47-70); Platelet Count 175 K/mm3 (150-450); RBC Distribution Width CV 13.2 % (11.6-14.6); RBC Distribution Width SD 42.1 fl (35.1-43.9); Red Blood Count 4.43 M/mm3 (4.6-6.2); White Blood Count 6.6 K/mm3 (4.4-11.0)
[2024-10-04 15:54] LABS: ALB/GLOB Ratio 1.3 RATIO (0.9-2.4); AST(SGOT) 25 U/L (<=37); Alanine Aminotransfer ALT/SGPT 27 U/L (<=46); Albumin, Serum 4.1 g/dL (3.4-4.8); Alkaline Phosphatase 68 U/L (40-129); Anion Gap 11 (5-15); BUN 18 mg/dL (4-19); Calcium 9.7 mg/dL (7.6-11.0); Carbon Dioxide 26.2 mmol/L (22.0-29.0); Chloride 104 mmol/L (96-108); EST Glomerular Filtration Rate 92 (>60); Glucose 109 mg/dL (70-99); Potassium 3.7 mmol/L (3.3-5.1); Protein, Total 7.1 g/dL (5.9-8.4); Sodium Level 141 mmol/L (133-145); Total Bilirubin 0.41 mg/dL (0.00-1.30)
== END | disposition home or self-care (01) ==
LOC: BFHLAB 13:31
PROVIDERS: PCP Family Medicine; Visit Provider Family Medicine
DX: I10 Essential (primary) hypertension (principal)
CPT/HCPCS: 36415; 80053; 85025

== ENCOUNTER 2024-10-24 10:56 | Day surgery (SDC) | payer MEDICARE, SELFPAY ==
--- NOTE | 2024-10-11 13:35 | PAT.ANESEVAL ---
Pre-Assessment Diagnosis/Proposed Procedure Planned Operative Procedure(s): LAP ROBOTIC LEFT INGUINAL HERNIA REPAIR WITH MESH,UMBILICAL HERNIA REPAIR Anesthesia History Anesthesia History - personnel coordinator: Anesthesia History - personnel coordinator Hx Hospitalization No 10/11/24 13:09 Any Problems With Anesthesia No 10/11/24 13:09 Cholinesterase deficiency No 10/11/24 13:09 You/Your Family Experience No 10/11/24 13:09 fever (hyperthermia) with Relationship Recent Exposure to Contagious No 04/01/14 17:19 Disease Does patient have nerve No 10/11/24 13:09 stimulator Patient instructed to have device shut off --Does patient have Pacemaker or ICD? When Was Last Pacemaker Check QUESTION #4 FULL TEXT: You/Your Family Experience fever (hyperthermia) with Anesthesia Last Oral Intake Last Oral intake: Last Oral Intake NPO since Meds taken in AM with sips of water? Meds patient instructed to take am of surgery PONV PONV - personnel coordinator: PONV - personnel coordinator Female No 10/11/24 13:09 HX of Motion Sickness No 10/11/24 13:09 HX of N/V After Surgery No 10/11/24 13:09 Non-Smoker Yes 10/11/24 13:09 Duration of Surgery greater Yes 10/11/24 13:09 than 60 minutes Number of Risk Factors 2 10/11/24 13:09 PONV Score Moderate Risk 10/11/24 13:09 Height & Weight Height & Weight: Anesthesia: Height & Weight Height 5 ft 9 in 10/09/24 08:45 Respiratory Assessment Respiratory Assessment - personnel coordinator: Respiratory Tract Infection Hx - personnel coordinator Hx Respiratory Tract Infection No 10/11/24 13:09 STOP Sleep Apnea STOP Sleep Apnea - personnel coordinator: STOP Sleep Apnea - personnel coordinator Hx Hypertension Yes: CONTROLLED WITH MED 10/11/24 13:09 Hx Sleep Apnea No 10/11/24 13:09 CPAP No 04/01/14 17:19 BIPAP No 04/01/14 17:19 Do you snore loudly (louder No 10/11/24 13:09 than talking or can be heard Do you often feel tired/ No 10/11/24 13:09 fatigued/ sleepy during daytime? Has anyone observed you stop No 10/11/24 13:09 breathing during sleep? STOP Results Negative 10/11/24 13:09 QUESTION #5 FULL TEXT : Do you snore loudly (louder than talking or can be heard through closed doors)? 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 Specify any problems Hx of Preganancy in last 3 N/A 10/11/24 13:09 Months Nurse Filling Out Transfusion DSCHRIBER 10/11/24 13:09 & Questions: Date: 10/11/24 10/11/24 13:09 Time: 13:11 10/11/24 13:09 Patient unable to answer at this time (ie. confused, unrespo /Reproduction History /Reproductive History - personnel coordinator: /Reproductive Hx- personnel coordinator Hx Now No 10/11/24 13:09 Gestational Age (in weeks): EDC: Hx Hx Para Hx Section SAB No 10/11/24 13:09 [facility] Medical History (Updated 10/11/24 @ 13:18 by Steff Antoine) Wears hearing aid Wears glasses Wears dentures Arthritis High cholesterol Injury of back Migraine headache Loss of consciousness Former smoker Leg cramps History of Holter monitoring History of echocardiogram History of stress test Cardiology follow-up encounter Left inguinal hernia PAF (paroxysmal atrial fibrillation) Essential hypertension Frequent unifocal PVCs BPH (benign prostatic hyperplasia) Hyperlipidemia Paroxysmal ventricular tachycardia Paroxysmal supraventricular tachycardia Home Medications ?Medication ?Instructions ?Recorded ?Last Taken ?Type cranberry 500 mg capsule 500 mg PO BID 12/24/17 Unknown History multivitamin 1 tab PO QDAY 12/24/17 Unknown History cyanocobalamin (vitamin B-12) 1,000 mcg PO QDAY 12/25/17 Unknown History 1,000 mcg tablet (Vitamin B-12) tamsulosin 0.4 mg capsule 0.4 mg PO QHS 05/31/18 Unknown History potassium chloride 10 mEq 10 meq PO DAILY #90 tabs 06/17/20 Unknown Rx tablet,extended release carvedilol 6.25 mg tablet 6.25 mg PO BID #180 tabs 01/31/22 Unknown Rx hydrochlorothiazide 25 mg tablet 25 mg PO DAILY #90 tabs 01/31/22 Unknown Rx lisinopril 20 mg tablet 20 mg PO BID 09/09/22 Unknown History aspirin 81 mg chewable tablet 81 mg PO DAILY 10/11/24 Unknown History Allergy/AdvReac Type Severity Reaction Status Date / Time amlodipine AdvReac Severe Other Verified 10/11/24 13:06 hydralazine AdvReac Severe Peripheral Verified 10/11/24 13:06 Neuritis (numb and pain hands and feet) isosorbide AdvReac Severe Severe Verified 10/11/24 13:06 headache Family History Father CAD (coronary artery disease) Mother CAD (coronary artery disease) CABG CVA (cerebral vascular accident) Diabetes Surgical History (Updated 10/11/24 @ 13:18 by Steff Antoine) Hx of colonoscopy Hx of right cataract extraction Hx of left cataract extraction History of appendectomy Social History Smoking Status: Former smoker how long ago did patient quit smokin years ago alcohol intake: never caffeine: Yes (1) Type: coffee Audit: Pertinent Findings Pertinent Findings Stress test pertinent findings: 01/04/2019 rare PVCs EF 75% essentially negative Echo (EF%) pertinent findings: 12/29/2023 EF 65% Consult pertinent findings: Cardiology 07/17/2024 paroxysmal atrial fibrillation. Holter monitor did not demonstrate any atrial fibrillation. Continue carvedilol Talal and aspirin. Hypertension. Continue medications for now. Recommendation Anesthesia Recommendation Anesthesia recommendation: OPTIMIZED for anesthesia
[2024-10-24] VITALS (10 sets, daily range): BP systolic 162–213; BP diastolic 82–97; PULSE 56–61; RESP 16–20; TEMP 36.2–36.7; O2SAT 96–100; BMI 23.4
[2024-10-24] MEDS: 0.9% Normal Saline (1000mL) 1,000 ML 15 ML IV (11:47)
--- NOTE | 2024-10-24 12:25 | PCM.PRE.AN2 ---
ASA Classification* ASA Classification ASA Classification: 3 Assessment & Plan Anesthesia* Anesthesia Assessment Anesthesia Assessment: Discussed sedation and/or anesthesia options, risks, benefits, and alternatives with patient/parents/legal guardian/POA. Questions invited. The patient/parents/legal guardian/POA seems to understand and agrees to proceed with anesthesia plan. Reviewed the physical assessment, medical history, allergy history and patient home medications list prior to surgery/procedure/anesthetic and documented any changes. Performed airway and anesthesia risk assessments. Anesthesia Type Anesthesia Type: General History Source History Obtained from:: Patient and Chart Anesthesia Focused Assessment* Temperature: 97.5 F Pulse Rate: 57 Blood Pressure: 198/88 Respiratory Rate: 18 Pulse Ox: 100 Oxygen Delivery Method: Room Air Airway Assessment Mouth opens: >3 cm Mallampati Score: III Teeth Condition: Dentures (Patient has full upper and lower dentures) Neck Range of motion (ROM): Limited ROM (Slight decrease in extension) Focused Labs Anesthesia Preop lab: CBC WBC 6.6 K/mm3 (4.4-11.0) 10/04/24 13:32 10/04/24 RBC 4.43 M/mm3 (4.6-6.2) L 10/04/24 13:32 10/04/24 Hgb 13.3 g/dL (13.0-16.5) 10/04/24 13:32 10/04/24 Hct 38.7 % (40-54) L 10/04/24 13:32 10/04/24 Plt Count 175 K/mm3 (150-450) 10/04/24 13:32 10/04/24 CHEMISTRY Potassium 3.7 mmol/L (3.3-5.1) 10/04/24 13:32 10/04/24 Sodium 141 mmol/L (133-145) 10/04/24 13:32 10/04/24 Magnesium 2.0 mg/dL (1.8-2.4) 04/16/15 15:08 04/16/15 BUN 18 mg/dL (4-19) 10/04/24 13:32 10/04/24 Creatinine 0.70 mg/dL (0.70-1.20) 10/04/24 13:32 10/04/24 Glucose 109 mg/dL (70-99) H 10/04/24 13:32 10/04/24 TSH 1.63 uIU/mL (0.358-3.74) 01/29/15 07:14 01/29/15 COAG Pre-Assessment Diagnosis/Proposed Procedure Planned Operative Procedure(s): LAP ROBOTIC LEFT INGUINAL HERNIA REPAIR WITH MESH,UMBILICAL HERNIA REPAIR Anesthesia History Anesthesia History - differential repairer: Anesthesia History - differential repairer Hx Hospitalization No 10/11/24 13:09 Any Problems With Anesthesia No 10/11/24 13:09 Cholinesterase deficiency No 10/11/24 13:09 You/Your Family Experience No 10/11/24 13:09 fever (hyperthermia) with Relationship Recent Exposure to Contagious No 10/24/24 11:33 Disease Does patient have nerve No 10/11/24 13:09 stimulator Patient instructed to have device shut off --Does patient have Pacemaker No 10/24/24 11:34 or ICD? When Was Last Pacemaker Check QUESTION #4 FULL TEXT: You/Your Family Experience fever (hyperthermia) with Anesthesia Last Oral Intake Last Oral intake: Last Oral Intake NPO since 08:30 10/24/24 11:34 Meds taken in AM with sips of Yes 10/24/24 11:34 water? Meds patient instructed to take am of surgery Any additional information?: Yes NPO since: 08:30 (Patient had water at 8:30 AM.) Meds taken in AM with sips of water?: Yes PONV PONV - differential repairer: PONV - differential repairer Female No 10/11/24 13:09 HX of Motion Sickness No 10/11/24 13:09 HX of N/V After Surgery No 10/11/24 13:09 Non-Smoker Yes 10/11/24 13:09 Duration of Surgery greater Yes 10/11/24 13:09 than 60 minutes Number of Risk Factors 2 10/11/24 13:09 PONV Score Moderate Risk 10/11/24 13:09 Height & Weight Height & Weight: Anesthesia: Height & Weight Height 5 ft 9 in 10/24/24 11:34 Weight: 72.121 kg 10/24/24 11:34 Body Mass Index (BMI) 23.4 10/24/24 11:34 Respiratory Assessment Respiratory Assessment - differential repairer: Respiratory Tract Infection Hx - differential repairer Hx Respiratory Tract Infection No 10/11/24 13:09 STOP Sleep Apnea STOP Sleep Apnea - differential repairer: STOP Sleep Apnea - differential repairer Hx Hypertension Yes: CONTROLLED WITH MED 10/11/24 13:09 Hx Sleep Apnea No 10/11/24 13:09 CPAP No 04/01/14 17:19 BIPAP No 04/01/14 17:19 Do you snore loudly (louder No 10/11/24 13:09 than talking or can be heard Do you often feel tired/ No 10/11/24 13:09 fatigued/ sleepy during daytime? Has anyone observed you stop No 10/11/24 13:09 breathing during sleep? STOP Results Negative 10/11/24 13:09 QUESTION #5 FULL TEXT : Do you snore loudly (louder than talking or can be heard through closed doors)? 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 Specify any problems Hx of Preganancy in last 3 N/A 10/11/24 13:09 Months Nurse Filling Out Transfusion DSCHRIBER 10/11/24 13:09 & Questions: Date: 10/11/24 10/11/24 13:09 Time: 13:11 10/11/24 13:09 Patient unable to answer at this time (ie. confused, unrespo /Reproduction History /Reproductive History - differential repairer: /Reproductive Hx- differential repairer Hx Now No 10/11/24 13:09 Gestational Age (in weeks): EDC: Hx Hx Para Hx Section SAB No 10/11/24 13:09 Active Medications Active Medications: Current Medications Generic Name Dose Route Start Last Admin Trade Name [place] PRN Reason Stop Dose Admin Gentamicin Sulfate 80 mg 10/24/24 12:30 Gentamicin 80 Mg/2 Ml Vial OPERA.SITE 10/24/24 12:31 X1 ONE Cefazolin Sodium 2 gm/ N/A 20 mls @ 400 mls/hr 10/24/24 12:30 IV 10/24/24 12:32 PREOP ONE Sodium Chloride 1,000 mls @ 15 mls/hr 10/24/24 11:45 10/24/24 11:47 IV 10/30/24 01:04 15 mls/hr .Q48H KEILA Administration PFSH Medical History Wears hearing aid Wears glasses Wears dentures Arthritis High cholesterol Injury of back Migraine headache Loss of consciousness Former smoker Leg cramps History of Holter monitoring History of echocardiogram History of stress test Cardiology follow-up encounter Left inguinal hernia PAF (paroxysmal atrial fibrillation) Essential hypertension Frequent unifocal PVCs BPH (benign prostatic hyperplasia) Hyperlipidemia Paroxysmal ventricular tachycardia Paroxysmal supraventricular tachycardia Home Medications ?Medication ?Instructions ?Recorded ?Last Taken ?Type cranberry 500 mg capsule 500 mg PO BID 12/24/17 10/22/24 History multivitamin 1 tab PO QDAY 12/24/17 10/23/24 History cyanocobalamin (vitamin B-12) 1,000 mcg PO QDAY 12/25/17 10/23/24 History 1,000 mcg tablet (Vitamin B-12) tamsulosin 0.4 mg capsule 0.4 mg PO QHS 05/31/18 10/23/24 History potassium chloride 10 mEq 10 meq PO DAILY #90 tabs 06/17/20 10/23/24 Rx tablet,extended release carvedilol 6.25 mg tablet 6.25 mg PO BID #180 tabs 01/31/22 10/24/24 07:30 Rx hydrochlorothiazide 25 mg tablet 25 mg PO DAILY #90 tabs 01/31/22 10/23/24 Rx lisinopril 20 mg tablet 20 mg PO BID 09/09/22 10/23/24 History aspirin 81 mg chewable tablet 81 mg PO DAILY 10/11/24 10/23/24 History super beets 2 tab PO DAILY 10/24/24 10/23/24 History Allergy/AdvReac Type Severity Reaction Status Date / Time amlodipine AdvReac Severe Other Verified 10/24/24 11:28 hydralazine AdvReac Severe Peripheral Verified 10/24/24 11:28 Neuritis (numb and pain hands and feet) isosorbide AdvReac Severe Severe Verified 10/24/24 11:28 headache Family History Father CAD (coronary artery disease) Mother CAD (coronary artery disease) CABG CVA (cerebral vascular accident) Diabetes Surgical History Hx of colonoscopy Hx of right cataract extraction Hx of left cataract extraction History of appendectomy Social History Smoking Status: Former smoker how long ago did patient quit smokin years ago alcohol intake: never caffeine: Yes (1) Type: coffee Review of Systems (Anesthesia) ROS Narrative System reviewed and no additional complaints, except as documented.
--- NOTE | 2024-10-24 12:25 | PCM.HP.STD ---
HPI - General General Date of Admission: 10/24/24 Date of Service: 10/24/24 Chief Complaint: Left inguinal hernia. Umbilical hernia HPI Narrative RADHA HUI, is a 84 M who presents for elective robotic left inguinal hernia repair along with umbilical hernia repair. He was recently seen through my office with these hernias. I offered him robotic repair. We discussed the details of the planned procedure as well as risks benefits and alternatives. Surgery will begin momentarily [facility] Medical History Wears hearing aid Wears glasses Wears dentures Arthritis High cholesterol Injury of back Migraine headache Loss of consciousness Former smoker Leg cramps History of Holter monitoring History of echocardiogram History of stress test Cardiology follow-up encounter Left inguinal hernia PAF (paroxysmal atrial fibrillation) Essential hypertension Frequent unifocal PVCs BPH (benign prostatic hyperplasia) Hyperlipidemia Paroxysmal ventricular tachycardia Paroxysmal supraventricular tachycardia Home Medications ?Medication ?Instructions ?Recorded ?Last Taken ?Type cranberry 500 mg capsule 500 mg PO BID 12/24/17 10/22/24 History multivitamin 1 tab PO QDAY 12/24/17 10/23/24 History cyanocobalamin (vitamin B-12) 1,000 mcg PO QDAY 12/25/17 10/23/24 History 1,000 mcg tablet (Vitamin B-12) tamsulosin 0.4 mg capsule 0.4 mg PO QHS 05/31/18 10/23/24 History potassium chloride 10 mEq 10 meq PO DAILY #90 tabs 06/17/20 10/23/24 Rx tablet,extended release carvedilol 6.25 mg tablet 6.25 mg PO BID #180 tabs 01/31/22 10/24/24 07:30 Rx hydrochlorothiazide 25 mg tablet 25 mg PO DAILY #90 tabs 01/31/22 10/23/24 Rx lisinopril 20 mg tablet 20 mg PO BID 09/09/22 10/23/24 History aspirin 81 mg chewable tablet 81 mg PO DAILY 10/11/24 10/23/24 History super beets 2 tab PO DAILY 10/24/24 10/23/24 History Allergy/AdvReac Type Severity Reaction Status Date / Time amlodipine AdvReac Severe Other Verified 10/24/24 11:28 hydralazine AdvReac Severe Peripheral Verified 10/24/24 11:28 Neuritis (numb and pain hands and feet) isosorbide AdvReac Severe Severe Verified 10/24/24 11:28 headache Family History Father CAD (coronary artery disease) Mother CAD (coronary artery disease) CABG CVA (cerebral vascular accident) Diabetes Surgical History Hx of colonoscopy Hx of right cataract extraction Hx of left cataract extraction History of appendectomy Social History Smoking Status: Former smoker how long ago did patient quit smokin years ago alcohol intake: never caffeine: Yes (1) Type: coffee Vital Signs Vital Signs Vital Signs: 10/24/24 11:33 10/24/24 11:34 Temperature 97.5 F L Temperature Source Temporal Pulse Rate 57 L Respiratory Rate 18 Respiratory Pattern Normal Blood Pressure 198/88 H Blood Pressure Mean 124 Blood Pressure Source Monitor Blood Pressure Position Semi-Fowlers Blood Pressure Location Left Arm Pulse Ox 100 Oxygen Delivery Method Room Air Weight Weight: 159 lb Body Mass Index (BMI) 23.4 Physical Exam Narrative Left inguinal hernia and umbilical hernia appear unchanged since his last office visit Const alert, oriented x3 and no apparent distress Assessment & Plan Assessment/Plan (1) Left inguinal hernia: PLAN: Plan The patient is a 84-year-old male with a left inguinal hernia as well as a small umbilical hernia. Plan is to proceed with robotic left inguinal hernia repair along with umbilical hernia repair. Surgery will begin shortly
[2024-10-24] MEDS: Cefazolin 2 GM in Syringe IV (13:08)
[2024-10-24] MEDS: Gentamicin 80 MG/2 ML Vial OPERA.SITE (13:39)
--- NOTE | 2024-10-24 15:13 | EX.PCM.DISCH ---
Discharge Instructions Diet Discharge Diet: Light diet - advance as tolerated Activity Discharge Activity: Return to Normal Activity and May Shower May shower in (days): 1 Ice area for (Minutes): 30 Lifting Restrictions: No lifting pushing or pulling more than 20 pounds for 6 weeks Dressing / Incision Call your doctor if your incision/area has: Continuous Slow Oozing, Sudden Increased Bleeding, Increased Pain/ Swelling, Increased Redness, Foul Smelling Discharge and Swelling at the incision site Call your doctor if you observe: Fever of 101 or Higher Cleanse incision/area with: Soap & Water Follow Up Care Please Follow Up With: Yordy Max MD When: 2 weeks. Please call office to schedule appointment Test Results: Test results from this visit will be discussed in further detail at your follow-up appointment, if applicable. Discharge Plan Admission Primary Reason for Your Visit: Robotic left inguinal hernia repair; umbilical hernia repair Attending Provider: Yordy Max Primary Care Provider: Pete Ferreira Instructions Print Language: Mohawk Discharge Orders/Prescriptions Prescriptions: New oxycodone-acetaminophen [Percocet] 5-325 mg tablet 1 tab PO Q8H PRN (Reason: pain) 3 Days Qty: 10 0RF Continued cyanocobalamin (vitamin B-12) [Vitamin B-12] 1,000 mcg tablet 1,000 mcg PO QDAY multivitamin tablet 1 tab PO QDAY cranberry 500 mg capsule 500 mg PO BID lisinopril 20 mg tablet 20 mg PO BID tamsulosin 0.4 mg capsule 0.4 mg PO QHS Patient Comments: urinary urgency aspirin 81 mg tablet,chewable 81 mg PO DAILY super beets 2 tab PO DAILY potassium chloride 10 mEq tablet extended release 10 meq PO DAILY Qty: 90 3RF carvedilol 6.25 mg tablet 6.25 mg PO BID Qty: 180 3RF Rx Instructions: must administer with a meal/food hydrochlorothiazide 25 mg tablet 25 mg PO DAILY Qty: 90 3RF Referrals / Follow Up: Pete Ferreira DO [Primary Care Provider] - Disposition Disposition (needs filled in before D/C Order can be placed): Home, Self Care
[2024-10-24] MEDS: Bupiv/Epi 0.25% 30 ML Vial (15:17)
--- NOTE | 2024-10-24 15:17 | PCM.OPRPT ---
Problems Associated Problem List Diagnoses (1) Left inguinal hernia: Multi Select Codes Digestive Digestive CPT Codes: 31659 RPR AA HRN 1ST < 3 CM RDC [place] 15931-06 Lap ing hernia repair init Operative Report (Standard) Operative Information Date of Procedure: 10/24/24 Pre-Operative Diagnosis: Left inguinal hernia; umbilical hernia Post-Operative Diagnosis: Same Surgery/Procedure Performed: 1. Robotic left inguinal hernia pair with mesh 2. Open repair of umbilical hernia jd edwards: Yes Unit Control Clerk: Anh Lara Tasks completed by first aid nurse: Closing, Trocar and Other Additional doctor assistant?: No Type of Anesthesia: General and Local RN Documented Start/Stop Times: Operation Date: 10/24/24 12:30 Case Time Into Pre-Op 10/24/24 11:00 Out of Pre-Op 10/24/24 12:55 Anesthesia Start 10/24/24 13:00 Into Room 10/24/24 13:00 Procedure Start 10/24/24 13:20 Procedure Start Time: 13:20 Procedure Stop Time: 15:15 Select all DRAINS/GRAFTS/IMPLANTS that apply: Prosthetic device Prosthetic device details: ProGrip mesh 10 x 15 cm Special Medications: 2 g Ancef IV Estimated Blood Loss: 20 mL Specimen collected: No Description of surgery: The patient is an 84-year-old male who was recently seen to the office with a left inguinal hernia he states he has had this for a year however in retrospect I suspect this has been present for much longer than a year. I offered him a robotic left inguinal hernia repair with mesh. He also has a small umbilical hernia that we also offered to repair at the time of surgery. We discussed the details of the planned procedure and he wished to proceed. The patient was brought to the operating room today following informed consent. Preoperative antibiotics were given and a timeout was performed. He was placed supine on the operative table with arms outstretched on arm boards. General anesthesia was induced. Once adequately sedated, the abdomen is then prepped and draped in the usual sterile manner. An incision was made just above the umbilicus and through this incision a 5 mm trocar was placed. This was inserted through the small fat-containing hernia. The abdomen is then fully insufflated with CO2 gas. A 5 mm 0 degree scope was inserted. There were no signs of bowel or vascular injury. Next 2 additional 8 mm trocars were placed under direct visualization. These were on the right as well as on the left side of the abdomen at about the same level as the umbilicus. These were placed without difficulty. The umbilical trocar was then switched out to an 8 mm trocar. The patient was then placed in mild Trendelenburg positioning. The da Savage IO robot was then brought up to the operative field and was docked to the trocars. A grasper was utilized in 1 hand and a curved scissors were placed in the other. Camera was inserted through the umbilical trocar site. The left-sided hernia was clearly visible. There was some small bowel and omentum within the hernia and this was easily reduced by manual pressure. There is no evidence of right inguinal hernia. The peritoneum overlying the left inguinal hernia was then incised in a medial to lateral direction. A set peritoneal plane was then developed. Blake's ligament was dissected out medially. Patient had a very large indirect hernia sac. This was better delineated and was eventually reduced. This required careful dissection to reduce the hernia. This appeared fairly chronic based on its level of adherence. There was also a fairly sizable cord lipoma. This too was reduced. Once sufficient dissection was performed and the hernia sac was fully reduced and sufficient shelf was developed inferiorly, a ProGrip 10 x 15 piece of mesh was selected. This was trimmed to fit the operative site. This was placed in antibiotic solution and then inserted into the abdomen. This was then unrolled and laid into position this covered over the defect nicely. The large cord lipoma was then placed on top of the mesh. The peritoneum was then closed using a running V-Loc suture. This closed the peritoneum nicely. After this was performed of the trocars were opened up and insufflation was allowed to escape. The trocars were removed. I returned to the operative field. A curvilinear incision was made around the superior aspect of the umbilicus utilizing the initial incision for part of this curvilinear incision. Bovie electrocautery was then used to dissect down through subtendinous tissues. The skin of the umbilicus was then encircled using a hemostat. A #15 blade was then used to dissect the skin of the umbilicus off of the underlying hernia sac. The fascial defect was about 6 mm in size. This was closed using 3 interrupted sutures consisting of 0 Nurolon. This closed the fascial defect nicely. 3-0 Vicryl was then used to reapproximate the skin in the umbilicus to the underlying fascia. 3-0 Vicryl was also used to reapproximate the subdermal layer. 4-0 Vicryl was then run in the skin on all incisions. Skin glue was applied as dressing. He was awakened from anesthesia and taken to recovery in good condition. A B2B APPOINTMENT SETTER was utilized as a first aid nurse. His role included assistance with positioning of the patient, inserting trocars, instrument exchanges with the robot and assistance with closure. Surgical Findings: Large left inguinal hernia?indirect Complications Complications: No Admit VTE Documentation VTE Present on Admission: No VTE Mechan Device Prophylaxis: SCD's VTE Pharm Prophylaxis ordered?: No Reason prophylaxis not ordered: Treatment Not Indicated
--- NOTE | 2024-10-24 15:30 | PCM.POST.ANE ---
Anesthesia: Postop Eval I Current Vital Signs Temperature: 98.1 F Pulse Rate: 58 Blood Pressure: 196/97 Respiratory Rate: 20 Pulse Ox: 97 Oxygen Delivery Method: Room Air Assessment Airway patent: Yes Spontaneous unlabored respirations: Yes Mental status: Awake and Calm nausea: No Vomiting: No Anesthesia Complication: No Fluid Hydration Crystalloid volume administer (ml): 1,800 Total IV fluid infused: 1,800 Progress Note Anesthesia document: Postop Eval 1 completed: Yes
--- NOTE | 2024-10-24 16:33 | POSTOPAN2_ITS ---
Anesthesia Postop Eval I Sum Postop Eval Completion status Anesthesia document: Postop Eval 1 completed: Yes Anesthesia Postop Eval I Summary Anesthesia Postop Eval I Summary: Anesthesia Postop Eval I: Assessment Summary Airway patent Yes 10/24/24 15:31 SUPERVISOR HAIRSPRING [email or web address] Spontaneous unlabored Yes 10/24/24 15:31 SUPERVISOR HAIRSPRING [email or web address] respirations Mental status Awake,Calm 10/24/24 15:31 SUPERVISOR HAIRSPRING [email or web address] nausea No 10/24/24 15:31 SUPERVISOR HAIRSPRING FABRICATION.[email or web address] Vomiting No 10/24/24 15:31 SUPERVISOR HAIRSPRING [email or web address] Anesthesia Postop Eval I: Fluid Summary Crystalloid volume administer 1,800 10/24/24 15:31 SUPERVISOR HAIRSPRING [email or web address].[email or web address] (ml) Colloids volume administered ( ml) Blood Product volume administered (ml) Total IV fluid infused 1,800 10/24/24 15:31 SUPERVISOR HAIRSPRING [email or web address] Anesthesia Postop Eval I: Summary Notes Anesthesia Complication No 10/24/24 15:31 SUPERVISOR HAIRSPRING [email or web address] Anesthesia Complication Comment: Post-operative progress note Anesthesia: Postop Eval II Evaluation Mental status: Awake Pain Level: 2 nausea: No Vomiting: No
--- NOTE | 2024-10-24 16:33 | PCM.POSTANE2 ---
Anesthesia Postop Eval I Sum Postop Eval Completion status Anesthesia document: Postop Eval 1 completed: Yes Anesthesia Postop Eval I Summary Anesthesia Postop Eval I Summary: Anesthesia Postop Eval I: Assessment Summary Airway patent Yes 10/24/24 15:31 VULCANIZER [email or web address] Spontaneous unlabored Yes 10/24/24 15:31 VULCANIZER OPERATOR.[email or web address] respirations Mental status Awake,Calm 10/24/24 15:31 VULCANIZER [email or web address].[email or web address] nausea No 10/24/24 15:31 VULCANIZER OPERATOR.[email or web address] Vomiting No 10/24/24 15:31 VULCANIZER [email or web address].[email or web address] Anesthesia Postop Eval I: Fluid Summary Crystalloid volume administer 1,800 10/24/24 15:31 VULCANIZER [email or web address].[email or web address] (ml) Colloids volume administered ( ml) Blood Product volume administered (ml) Total IV fluid infused 1,800 10/24/24 15:31 VULCANIZER [email or web address].[email or web address] Anesthesia Postop Eval I: Summary Notes Anesthesia Complication No 10/24/24 15:31 VULCANIZER [email or web address].[email or web address] Anesthesia Complication Comment: Post-operative progress note Anesthesia: Postop Eval II Evaluation Mental status: Awake Pain Level: 2 nausea: No Vomiting: No
== END 2024-10-24 17:59 | disposition home or self-care (01) ==
PROVIDERS: PCP Family Medicine; Referring Provider Surgery; Visit Provider Surgery
PROC: 0YQ64ZZ Repair Left Inguinal Region, Percutaneous Endoscopic Approach (ICD-10-PCS; CPT 49650; principal; 2024-10-24 12:10)
DX: K40.90 Unilateral inguinal hernia, without obstruction or gangrene, not specified as recurrent (principal); K42.9 Umbilical hernia without obstruction or gangrene; D17.6 Benign lipomatous neoplasm of spermatic cord; I10 Essential (primary) hypertension; Z79.899 Other long term (current) drug therapy; Z87.891 Personal history of nicotine dependence
CPT/HCPCS: 49650; S2900; 49591; 00750; J2405